=== PATIENT | male | born 1955 | race Caucasian/White ===

== ENCOUNTER → 2016-08-13 | Outpatient (CLI) | payer OTHER | END | disposition home or self-care (01) | LOC: CFH 15:36 | PROVIDERS: ATTEND Nurse Practitioner Primary Care | DX: M19.012 Primary osteoarthritis, left shoulder (principal) ==

== ENCOUNTER → 2017-12-06 | Outpatient (CLI) | payer OTHER | END | disposition home or self-care (01) | LOC: CFH 12:42 | PROVIDERS: ATTEND Internal Medicine Cardiovascular Disease | DX: I25.89 Other forms of chronic ischemic heart disease (principal); I45.10 Unspecified right bundle-branch block; I10 Essential (primary) hypertension; I63.9 Cerebral infarction, unspecified; I25.2 Old myocardial infarction | CPT/HCPCS: 78452; 93017; A9502 ==

== ENCOUNTER → 2018-01-05 | Outpatient (CLI) | payer OTHER | END | disposition home or self-care (01) | LOC: CVU 09:07 | PROVIDERS: ATTEND Internal Medicine Cardiovascular Disease | DX: I11.9 Hypertensive heart disease without heart failure (principal); I70.0 Atherosclerosis of aorta; I63.9 Cerebral infarction, unspecified; I77.810 Thoracic aortic ectasia | CPT/HCPCS: 93306; 93978 ==

== ENCOUNTER 2018-01-20 07:50 | Day surgery (SDC) | payer OTHER ==
[~2018-01-20] VITALS: Ht 170.2 cm; Wt 91.0 kg
[2018-01-20] MEDS ORDERED: TICAGRELOR 90 MG TABLET ONE (08:19)
[2018-01-20] MEDS ORDERED: VERAPAMIL 2.5 MG/ML, 2ML ONE (08:19)
[2018-01-20] MEDS ORDERED: FENTANYL PF 100 MCG/2ML ONE (08:19)
[2018-01-20] MEDS ORDERED: MIDAZOLAM 1 MG/ML, 5ML ONE (08:19)
[2018-01-20] MEDS ORDERED: BIVALIRUDIN 250 MG ONE ×2 (08:19→08:42)
[2018-01-20] MEDS ORDERED: HEPARIN 1,000 UNITS/ML, 10ML ONE (08:19)
[2018-01-20] MEDS ORDERED: SODIUM CHLORIDE 0.9% 1,000 ML IV ONE (08:20)
[2018-01-20 08:22] VITALS: BP 133/92
[2018-01-20] MEDS ORDERED: ASPIRIN 325 MG TABLET EC PO ONE (08:30)
[2018-01-20] MEDS ORDERED: PLEASE ENTER HEIGHT AND WEIGHT MC SCH (08:30)
[2018-01-20] MEDS ORDERED: ASPI-650 PO (08:35)
[2018-01-20] MEDS ORDERED: ATOR40TA78 PO (08:35)
[2018-01-20] MEDS ORDERED: METF500T5 PO (08:35)
[2018-01-20] MEDS ORDERED: losartan PO (08:35)
[2018-01-20] MEDS ORDERED: AMLO10TA4 PO (08:35)
[2018-01-20] MEDS ORDERED: OMEP-110 PO (08:35)
[2018-01-20] MEDS ORDERED: ASPIRIN 325 MG TABLET EC ONE (08:38)
[2018-01-20] MEDS ORDERED: [UNRECOGNIZED DRUG - OTHER] PO (08:42)
[2018-01-20] MEDS ORDERED: UBID100C41 PO (08:42)
[2018-01-20] MEDS ORDERED: [UNRECOGNIZED DRUG - OTHER] PO (08:42)
[2018-01-20] MEDS ORDERED: SODIUM CHLORIDE 0.9% 1,000 ML IV SCH (10:37)
== END 2018-01-20 16:21 | disposition home or self-care (01) ==
LOC: CACL 07:50
PROVIDERS: ATTEND Internal Medicine Cardiovascular Disease
DX: I77.810 Thoracic aortic ectasia (principal); R07.9 Chest pain, unspecified; F17.210 Nicotine dependence, cigarettes, uncomplicated; E11.9 Type 2 diabetes mellitus without complications; I10 Essential (primary) hypertension; E78.5 Hyperlipidemia, unspecified; E78.00 Pure hypercholesterolemia, unspecified; E66.9 Obesity, unspecified; Z79.82 Long term (current) use of aspirin; Z79.899 Other long term (current) drug therapy; Z86.73 Personal history of transient ischemic attack (TIA), and cerebral infarction without residual deficits
CPT/HCPCS: 93458; 93567; 99156; C1769; C1894; J1644; J2250; J3010; J7030; Q9967; J0583